=== PATIENT | female | born 1995 | race Caucasian/White ===

== ENCOUNTER → 2017-09-20 | Outpatient (CLI) | payer OTHER ==
[2017-09-20 11:10] LABS: ALBUMIN 3.3 gm/dl (3.4-5.0); ALT/SGPT 12 U/L (12-78); AST/SGOT 15 U/L (15-37); BLOOD UREA NITROGEN 16 mg/dl (7-18); CARBON DIOXIDE 23 mmol/L (21-32); CREATININE 0.73 mg/dl (0.60-1.20); GLUCOSE 78 mg/dl (70-99); GLUCOSE,FASTING 78 mg/dl (70-99); SODIUM 138 mmol/L (136-145)
[2017-09-20 11:18] LABS: ALKALINE PHOSPHATASE 59 U/L (45-117); CHOLESTEROL 162 mg/dl (0-200); LDL CHOLESTEROL CALCULATED 71 mg/dl; TOTAL PROTEIN 7.2 gm/dl (6.4-8.2)
== END | disposition home or self-care (01) ==
LOC: C.LAB1850 09:26
PROVIDERS: ATTEND Internal Medicine Endocrinology, Diabetes & Metabolism
DX: L65.9 Nonscarring hair loss, unspecified (principal); E55.9 Vitamin D deficiency, unspecified; K90.9 Intestinal malabsorption, unspecified